=== PATIENT | female | born 1995 | race Caucasian/White ===

== ENCOUNTER 2016-09-21 19:27 | Emergency (ER) | payer MEDICAID ==
[~2016-09-21] VITALS: Ht 152.4 cm; Wt 67.0 kg
[2016-09-21 20:20] VITALS: Ht 152.4 cm; Wt 67.0 kg
[2016-09-21] MEDS ORDERED: HYDR-906 PO (22:03)
[2016-09-21] MEDS ORDERED: IBUP800T25 PO (22:03)
--- NOTE | 2016-09-21 22:10 | ERD ---
ER Documentation Chief Complaint Date/Time DATE: 09/21/16 TIME: 22:04 Chief Complaint Vaginal bleeding intermittent x5 daus. Unknown if HPI This is a 21-year-old female complains of some pelvic cramps during her menstrual cycle. Patient states she had a shortened menstrual cycle last month it lasted 2-3 days it typically last 4-5 days. She says that her period is started and she is having some cramps and less flow than usual on her first day. She is sexually active and does not know she is . Denies any dysuria hematuria vomiting but does have some off-and-on pelvic cramps. ROS All systems reviewed and are negative except as per history of present illness. Medications Home Meds Active Scripts Hydrocodone/Acetaminophen ([place] 5-325 Tablet) 1 Each Tablet, 1 TAB PO Q6H Y for PAIN, #20 TAB Prov:LEKKOS,APOSTOLOS A. DO 09/21/16 Ibuprofen* (Motrin*) 800 Mg Tab, 800 MG PO Q6H Y for PAIN AND OR ELEVATED TEMP, #30 TAB Prov:LEKKOS,APOSTOLOS A. DO 09/21/16 Allergies Allergies: Coded Allergies: No Known Allergy (Unverified , 09/21/16) PMhx/Soc Medical and Surgical Hx: pt denies Medical Hx, pt denies Surgical Hx History of Surgery: No Anesthesia Reaction: No Hx Neurological Disorder: No Hx Respiratory Disorders: No Hx Cardiac Disorders: No Hx Psychiatric Problems: No Hx Miscellaneous Medical Probl: No Hx Alcohol Use: No Hx Substance Use: No Hx Tobacco Use: No Smoking Status: Never smoker FmHx Family History: No coronary disease Physical Exam Vitals Vital Signs Date Time Temp Pulse Resp B/P Pulse Ox O2 Delivery O2 Flow Rate FiO2 09/21/16 20:20 99.0 73 20 124/75 99 Physical Exam Const: Well-developed, well-nourished Head: Atraumatic, normocephalic Eyes: Normal Conjunctiva, PERRLA, EOMI, normal sclera, no nystagmus ENT: Normal External Ears, Nose and Mouth, moist mucus membranes. Neck: Full range of motion. No meningismus, no lymphadenopathy. Resp: Clear to auscultation bilaterally, no wheezing, rhonchi, rales Cardio: Regular rate and rhythm, no murmurs, S1 S2 present Abd: Soft, non tender x 4, non distended. Normal bowel sounds, no guarding or rebound, no pulsitile abdominal masses or bruits Skin: No petechiae or rashes, no ecchymosis , no maculopapular rash Back: No midline or flank tenderness Ext: No cyanosis, or edema, FROM x 4, normal inspection, neurovascularly intact x 4 Neur: Awake and alert, STR 5/5 x 4, sensation intact x 4, no focal findings, cerebellum intact Psych: Normal Mood and Affect Procedures/MDM Patient's test is negative. She is having some irregular cycle this time I told her to observe her next couple cycles and can follow-up with Departure Diagnosis: Primary Impression: Menses painful Condition: Stable Patient Instructions: Understanding the Normal Menstrual Cycle, Hormones Control Your Menstrual Cycle BRUCE ANTONY DO Sep 21, 2016 22:10
[2016-09-21 22:37] VITALS: BP 114/70; RESP 18; TEMP 98.4
== END 2016-09-21 22:35 | disposition home or self-care (01) ==
LOC: FTE 19:27
DX: N94.6 Dysmenorrhea, unspecified (principal); R10.2 Pelvic and perineal pain
CPT/HCPCS: 99283

== ENCOUNTER 2017-07-25 23:05 | Outpatient (CLI) | END 2017-07-26 03:13 | disposition home or self-care (01) ==

== ENCOUNTER 2017-09-21 17:45 | Inpatient (IN) | END 2017-09-24 14:26 | disposition home or self-care (01) | DRG 778 ==

== ENCOUNTER 2017-10-08 00:15 | Outpatient (CLI) | END 2017-10-08 04:25 | disposition home or self-care (01) ==

== ENCOUNTER 2017-10-12 00:11 | Inpatient (IN) | END 2017-10-14 14:10 | disposition home or self-care (01) | DRG 775 ==